=== PATIENT | male | born 1990 | race Caucasian/White ===

== ENCOUNTER 2020-08-18 08:50 | Emergency (ER) | payer OTHER ==
[~2020-08-18] VITALS: Ht 177.8 cm; Wt 63.5 kg
[~2020-08-18 08:50] MED LIST: CRUTCH4 USE; Cleocin HCl300 MG PO; HYDACE5 PO; RXHYDACE PO
== END 2020-08-18 10:39 | disposition home or self-care (01) ==
LOC: ER 08:50
DX: M25.531 Pain in right wrist (principal); F17.200 Nicotine dependence, unspecified, uncomplicated; Z91.040 Latex allergy status
CPT/HCPCS: 73110; 99283-25